=== PATIENT | female | born 1955 | race African-American/Black ===

== ENCOUNTER 2018-01-30 08:55 | Outpatient (CLI) | payer OTHER | END 2018-01-30 08:56 | disposition home or self-care (01) | LOC: BICMAMMO 08:55 | PROVIDERS: ATTEND Family Medicine | DX: Z12.31 Encounter for screening mammogram for malignant neoplasm of breast (principal); R92.1 Mammographic calcification found on diagnostic imaging of breast | CPT/HCPCS: 77067 ==